=== PATIENT | female | born 1990 | race Two or more races ===

== ENCOUNTER 2024-03-20 12:37 | Emergency (ER) | payer OTHER ==
[~2024-03-20] VITALS: Ht 160 cm; Wt 77.1 kg
== END 2024-03-20 15:01 | disposition home or self-care (01) ==
LOC: ER 12:39
DX: J40 Bronchitis, not specified as acute or chronic (principal); R05.9 Cough, unspecified; Z88.6 Allergy status to analgesic agent; Z91.013 Allergy to seafood

== ENCOUNTER 2024-06-27 12:10 | Outpatient (CLI) | payer OTHER | END 2024-06-27 13:09 | disposition home or self-care (01) | LOC: NST 12:10 | PROVIDERS: ATTEND Obstetrics & Gynecology | DX: Z34.83 Encounter for supervision of other normal pregnancy, third trimester (principal) ==

== ENCOUNTER 2024-07-04 16:25 | Outpatient (CLI) | payer OTHER | END 2024-07-04 17:52 | disposition home or self-care (01) | LOC: NST 16:25 | PROVIDERS: ATTEND Obstetrics & Gynecology Gynecology | DX: Z34.83 Encounter for supervision of other normal pregnancy, third trimester (principal) ==

== ENCOUNTER 2024-07-19 13:06 | Inpatient (IN) | payer OTHER ==
[~2024-07-19] VITALS: Ht 160 cm; Wt 83.9 kg
[2024-08-10] VITALS (9 sets, daily range): BP systolic 98–126; BP diastolic 61–79; O2SAT 100
[2024-08-10] MEDS ORDERED: PRENATAL TABLE1 EAC1 PO (06:59)
[2024-08-10] MEDS ORDERED: RINGERS SOLUTION,LACTATED 1,000 ML IV SCH (07:15)
[2024-08-10] MEDS ORDERED: OXYTOCIN 20 UNITS/500ML RL PIGGYBAG IV ONE (07:28)
[2024-08-10] MEDS ORDERED: OXYTOCIN 500 ML IV ONE (07:45)
[2024-08-10 08:32] LABS: HEMATOCRIT 34.4 % (36.0-45.00); HEMOGLOBIN 11.7 g/dL (12.0-15.00); MEAN CELL VOLUME 86.2 fL (80.00-100.00); MEAN CORPUSCULAR HEMOGLOBIN 29.4 pg (27.00-32.0); MEAN CORPUSCULAR HGB CONC 34.1 g/dl (32.0-36.0); PLATELET COUNT 187 K/uL (150-450); RED BLOOD COUNT 3.99 M/uL (4.00-6.00); RED CELL DISTRIBUTION WIDTH 13.8 % (11.5-14.5)
[2024-08-10 09:00] LABS: INR 0.94; PARTIAL THROMBOPLASTIN TIME 28.5 SECONDS (22.0-34.0); PROTHROMBIN TIME 10.3 SECONDS (9.0-11.5)
[2024-08-10] MEDS ORDERED: LIDOCAINE HCL 1% 10ML VIAL ONE (17:34)
[2024-08-10] MEDS ORDERED: ERYTHROMYCIN BASE OPHT 1GM EACH TUBE OP ONE (17:34)
[2024-08-10] MEDS ORDERED: CHLORHEXIDINE GLUCONATE 120 ML BOTTLE TOP ONE (17:34)
[2024-08-10] MEDS ORDERED: OXYTOCIN 20 UNITS/1000ML RL PIGGYBAG IV ONE (17:34)
[2024-08-10] MEDS ORDERED: OXYTOCIN 10 UNITS/ML VIAL ONE (18:06)
[2024-08-10] MEDS ORDERED: ACETAMINOPHEN WITH CODEINE 1 UDTAB TABLET PO PRN (18:45)
[2024-08-10] MEDS ORDERED: OXYTOCIN 1,000 ML IV SCH (18:45)
[2024-08-11] VITALS: BP 114/76
[2024-08-11 09:32] VITALS: BP 115/78
[2024-08-11 16:10] VITALS: BP 128/80
[2024-08-11] MEDS ORDERED: OXYTOCIN 2,000 ML IV SCH (18:45)
[2024-08-12 00:53] VITALS: BP 119/77
[2024-08-12 09:31] VITALS: BP 117/80
== END 2024-08-12 13:30 | disposition home or self-care (01) | DRG 807 ==
LOC: LDR 08-10 05:48 → OB/GYN 08-10 20:51
PROVIDERS: ADMIT Obstetrics & Gynecology; ATTEND Obstetrics & Gynecology
PROC: 10E0XZZ Delivery of Products of Conception, External Approach (ICD-10-PCS; principal; 2024-08-10)
PROC: 0W8NXZZ Division of Female Perineum, External Approach (ICD-10-PCS; 2024-08-10)
PROC: 4A1HXCZ Monitoring of Products of Conception, Cardiac Rate, External Approach (ICD-10-PCS; 2024-08-10)
DX: O80 Encounter for full-term uncomplicated delivery (principal); Z37.0 Single live birth; Z3A.40 40 weeks gestation of pregnancy

== ENCOUNTER 2024-08-02 09:32 | Outpatient (CLI) | payer OTHER | END 2024-08-02 10:37 | disposition home or self-care (01) | LOC: NST 09:32 | PROVIDERS: ATTEND Obstetrics & Gynecology | DX: Z34.83 Encounter for supervision of other normal pregnancy, third trimester (principal) ==